=== PATIENT | male | born 2000 | race Caucasian/White ===

== ENCOUNTER 2021-04-20 21:04 | Emergency (ER) | payer OTHER ==
[~2021-04-20] VITALS: Ht 180.3 cm; Wt 72.6 kg
--- NOTE | 2021-04-20 22:00 | NUR ---
PT BIBSELF C/O COUGH X3 DAYS. PT ALERT AND ORIENTED X3. AMBULATORY WITH NON LABORED BREATHING.
--- NOTE | 2021-04-20 22:07 | NUR ---
COVID SWAB COLLECTED VIA ASSISTANT PASTRY CHEF AND SENT TO LAB
[2021-04-20] MEDS ORDERED: PROM118S5 PO (22:24)
[2021-04-20] MEDS ORDERED: ALBU18HF2 INH (22:39)
[2021-04-20] MEDS ORDERED: METH4TAB3 PO (22:39)
[2021-04-20] MEDS ORDERED: AZIT250T13 PO (22:39)
[2021-04-20 23:18] VITALS: BP 130/78
--- NOTE | 2021-04-20 23:18 | NUR ---
Patient discharged to home in stable condition. Written and verbal after care instructions given. Patient verbalizes understanding of instruction.
== END 2021-04-20 23:20 | disposition home or self-care (01) ==
LOC: ER 21:11
DX: J20.9 Acute bronchitis, unspecified (principal); Z20.822 Contact with and (suspected) exposure to COVID-19; R03.0 Elevated blood-pressure reading, without diagnosis of hypertension
CPT/HCPCS: 71045; 87426; 99284; C9803